=== PATIENT | female | born 1975 | race Caucasian/White ===

== ENCOUNTER 2021-08-23 12:55 | Emergency (ER) | payer OTHER | END 2021-08-23 15:00 | disposition home or self-care (01) | LOC: ER1 12:55 | DX: S43.001A Unspecified subluxation of right shoulder joint, initial encounter (principal); F17.200 Nicotine dependence, unspecified, uncomplicated; Z98.890 Other specified postprocedural states; X58.XXXA Exposure to other specified factors, initial encounter | CPT/HCPCS: 73030; 99283 ==